=== PATIENT | female | born 1940 | race Caucasian/White ===

== ENCOUNTER 2017-08-19 08:51 | Emergency (ER) | payer MEDICARE, OTHER ==
[~2017-08-19] VITALS: Ht 5367.7 cm; Wt 40.9 kg
[~2017-08-19 08:51] MED LIST: ALBU18HF2 INH; CLOR3.755 PO; ESTR0.5T PO; FURO-150 PO; GUAI200T5 PO; LEVO25TA7 PO; MULT-785 PO; POTA20PA3 PO; PRED20TA PO; RANI300C PO; TIOT4MIS5 INH
[2017-08-19] MEDS ORDERED: dexamethasone sod phosphate 10mg/ml inj IV STA (08:57)
[2017-08-19] MEDS ORDERED: ipratropium/albuterol 3ml nebule NEB ONE (09:00)
[2017-08-19] MEDS ORDERED: LORazepam 2 mg/ml vial IV ONE (09:05)
[2017-08-19 09:20] LABS: ABG HCO3 39.2 mmol/L (22.0-26.0); ABG OXYGEN SATURATION 91.3 % (95-98); ABG PCO2 (T) 68.6 mmHg (32.0-45.0); ABG PH (T) 7.375 (7.350-7.450); ABG PO2 (T) 62.2 mmHg (83-108); ALLEN'S TEST Positive; FCOHb 0.9 % (0.5-1.5); FLOW 2 L/min; FMetHb 0.1 % (0.3-1.12); FO2Hb 90.4 % (94-100); RESPIRATORY RATE (OBSERVED) 26 b/min
[2017-08-19 09:22] LABS: BASOPHILS % (AUTO) 0.2 % (0-1); EOSINOPHILS % (AUTO) 0.2 % (0-6); HEMATOCRIT 42.4 % (35.0-45.0); HEMOGLOBIN 13.7 g/dl (12.0-16.0); LYMPHOCYTES # (AUTO) 0.3 X10'3 (1.1-4.8); LYMPHOCYTES % (AUTO) 1.7 % (21-51); MEAN CORPUSCULAR HEMOGLOBIN 30.9 PG (27.0-31.0); MEAN CORPUSCULAR HGB CONC 32.4 % (33.0-36.5); MEAN CORPUSCULAR VOLUME 95.6 FL (78-98); MEAN PLATELET VOLUME 7.9 FL (7.4-10.4); MONOCYTES # (AUTO) 0.2 X10'3 (0-0.9); MONOCYTES % (AUTO) 0.9 % (2-12); NEUTROPHILS # (AUTO) 18.3 X10'3 (1.8-7.7); PLATELET COUNT 256 X10'3 (140-440); RED BLOOD COUNT 4.44 X10'6 (4.20-5.60); RED CELL DISTRIBUTION WIDTH 13.5 % (11.5-14.5); WHITE BLOOD COUNT 18.9 X10'3 (4.5-11.0)
[2017-08-19 09:43] LABS: ALANINE AMINOTRANSFERASE 26 U/L (12-78); ALBUMIN 3.2 G/DL (3.4-5.0); ALBUMIN/GLOBULIN RATIO 1.1 (1.1-1.5); ALKALINE PHOSPHATASE 64 IU/L (46-116); ASPARTATE AMINO TRANSFERASE 21 U/L (10-37); BILIRUBIN,TOTAL 1.3 MG/DL (0.1-1.0); BLOOD UREA NITROGEN 6 MG/DL (7-18); BUN/CREATININE RATIO 11.1 (6.6-38.0); CHLORIDE 101 MMOL/L (99-107); CHOL/HDL RATIO 1.8 (0.00-4.99); CHOLESTEROL 239 MG/DL (0-200); CREATININE 0.54 MG/DL (0.40-0.90); GLUCOSE 116 MG/DL (70-104); HDL CHOLESTEROL 135 MG/DL (35-60); LDL CHOLESTEROL 105 MG/DL (50-100); POTASSIUM 3.8 MMOL/L (3.5-5.1); TOTAL PROTEIN 6.1 G/DL (6.4-8.2); TRIGLYCERIDES 98 MG/DL (20-135); eGFR > 90 ML/MIN
[2017-08-19 09:55] LABS: ANION GAP 2 (8-16); SODIUM 145 MMOL/L (135-145); TOTAL CARBON DIOXIDE 42.5 MMOL/L (24-32)
[2017-08-19 09:56] LABS: CALCIUM 8.8 MG/DL (8.5-10.1)
[2017-08-19] MEDS ORDERED: ALB0.5UD IH (10:22)
[2017-08-19] MEDS ORDERED: NYSTATIN (10:22)
[2017-08-19 11:08] VITALS: BP 105/68
== END 2017-08-19 12:04 | disposition home or self-care (01) ==
LOC: ER 08:51 → ED HOLD 10:22 → UNDOADMIN 10:22 → ER 12:04 → UNDODISIN 12:32
DX: J44.1 Chronic obstructive pulmonary disease with (acute) exacerbation (principal); E87.4 Mixed disorder of acid-base balance; E03.9 Hypothyroidism, unspecified; E78.00 Pure hypercholesterolemia, unspecified; R91.1 Solitary pulmonary nodule; E78.5 Hyperlipidemia, unspecified; Z90.710 Acquired absence of both cervix and uterus; Z88.1 Allergy status to other antibiotic agents; Z88.8 Allergy status to other drugs, medicaments and biological substances
CPT/HCPCS: 36415; 36600; 71010; 80053; 80061; 82803; 83880; 84439; 84443; 84484; 85018; 85025; 93005; 94640; 94760; 96374; 96375; 99285; J1100; J2060

== ENCOUNTER 2017-08-20 08:44 | Inpatient (IN) | payer MEDICARE, OTHER ==
[~2017-08-20] VITALS: Ht 162.6 cm; Wt 40.9 kg
[~2017-08-20 08:44] MED LIST changes: +ALB0.5UD IH; -FURO-150 PO; +NYSTATIN; -POTA20PA3 PO; -PRED20TA PO; -RANI300C PO
[2017-08-20 09:17] LABS: BASOPHILS % (AUTO) 0.3 % (0-1); EOSINOPHILS # (AUTO) 0.2 X10'3 (0-0.9); EOSINOPHILS % (AUTO) 1.2 % (0-6); HEMATOCRIT 43.6 % (35.0-45.0); LYMPHOCYTES # (AUTO) 0.4 X10'3 (1.1-4.8); LYMPHOCYTES % (AUTO) 2.8 % (21-51); MEAN CORPUSCULAR HEMOGLOBIN 31.2 PG (27.0-31.0); MEAN CORPUSCULAR HGB CONC 32.2 % (33.0-36.5); MEAN PLATELET VOLUME 7.3 FL (7.4-10.4); MONOCYTES # (AUTO) 0.6 X10'3 (0-0.9); MONOCYTES % (AUTO) 3.7 % (2-12); NEUTROPHILS # (AUTO) 14.1 X10'3 (1.8-7.7); PLATELET COUNT 246 X10'3 (140-440); RED BLOOD COUNT 4.49 X10'6 (4.20-5.60); RED CELL DISTRIBUTION WIDTH 14.1 % (11.5-14.5); WHITE BLOOD COUNT 15.4 X10'3 (4.5-11.0)
[2017-08-20 09:39] LABS: ALANINE AMINOTRANSFERASE 31 U/L (12-78); ALBUMIN 3.3 G/DL (3.4-5.0); ALKALINE PHOSPHATASE 70 IU/L (46-116); ANION GAP -2 (8-16); ASPARTATE AMINO TRANSFERASE 22 U/L (10-37); BILIRUBIN,TOTAL 1.2 MG/DL (0.1-1.0); BLOOD UREA NITROGEN 9 MG/DL (7-18); BUN/CREATININE RATIO 13.8 (6.6-38.0); CALCIUM 9.2 MG/DL (8.5-10.1); CHLORIDE 102 MMOL/L (99-107); CREATININE 0.65 MG/DL (0.40-0.90); GLUCOSE 104 MG/DL (70-104); POTASSIUM 4.2 MMOL/L (3.5-5.1); SODIUM 146 MMOL/L (135-145); TOTAL PROTEIN 6.7 G/DL (6.4-8.2); eGFR 89 ML/MIN
[2017-08-20 09:40] LABS: ABG BASE EXCESS 10.2 mmol/L (-2.0-3.0); ABG HCO3 38.7 mmol/L (22.0-26.0); ABG OXYGEN SATURATION 95.2 % (95-98); ABG PCO2 (T) 70.8 mmHg (32.0-45.0); ABG PH (T) 7.356 (7.350-7.450); ABG PO2 (T) 79.2 mmHg (83-108); ALLEN'S TEST Positive; FCOHb 1.1 % (0.5-1.5); FLOW 2 L/min; FMetHb 0.2 % (0.3-1.12); TOTAL HEMOGLOBIN 14.1 G/dl (12.0-16.0)
[2017-08-20 09:45] LABS: PLATELET ESTIMATE NORMAL; STOMATOCYTES 1+
[2017-08-20 09:49] LABS: TOTAL CARBON DIOXIDE 45.7 MMOL/L (24-32)
[2017-08-20] MEDS ORDERED: dexamethasone sod phosphate 10mg/ml inj IV STA (09:59)
[2017-08-20] MEDS ORDERED: ipratropium/albuterol 3ml nebule NEB ONE (10:00)
[2017-08-20] MEDS ORDERED: HYDROcodone/acetaminophen 5mg/325mg tablet PO PRN (10:40)
[2017-08-20] MEDS ORDERED: potassium Cl 20 mEq SR tablet PO PRN ×2 (10:40)
[2017-08-20] MEDS ORDERED: magnesium Cl slow-release 64mg tablet PO PRN (10:40)
[2017-08-20] MEDS ORDERED: potassium Cl 40MEQ/NS 500ml 500 ML IV PRN ×2 (10:40)
[2017-08-20] MEDS ORDERED: bisacodyl 10mg suppository rectal RC PRN (10:40)
[2017-08-20] MEDS ORDERED: ondansetron/PF 4mg/2ml inj IV PRN (10:40)
[2017-08-20] MEDS ORDERED: morphine sulfate 8 MG/ML SYRINGE IV PRN ×2 (10:40)
[2017-08-20] MEDS ORDERED: mag hydrox/Alum hydrox/simeth 30ml oral suspension PO PRN (10:40)
[2017-08-20] MEDS ORDERED: magnesium 4gm in 100ml NS 100 ML IV PRN (10:40)
[2017-08-20] MEDS ORDERED: HYDROcodone/acetaminophen 10/325mg tab PO PRN (10:40)
[2017-08-20] MEDS ORDERED: acetaminophen 325mg tablet PO PRN (10:40)
[2017-08-20] MEDS ORDERED: magnesium 2GM in 50ml NS 50 ML IV PRN (10:40)
[2017-08-20] MEDS ORDERED: GUAIFENESIN PO PRN (10:50)
[2017-08-20] MEDS ORDERED: albuterol 2.5 MG/3 ML nebule NEB PRN (11:25)
[2017-08-20] MEDS ORDERED: CLORAZEPATE DIPOTASSIUM 3.75 MG PO SCH (11:30)
[2017-08-20 11:50] VITALS: BP 132/84
[2017-08-20] MEDS: ipratropium/albuterol 3ml nebule NEB SCH ×4 (12:19→23:23)
[2017-08-20] MEDS: levoFLOXACIN-Levaquin 750MG/D5 150 ML IV SCH (12:30)
[2017-08-20] MEDS: pantoprazole 40 MG vial IV SCH (12:31)
[2017-08-20] MEDS: LORazepam 2 mg/ml vial IV PRN ×2 (12:32→20:18)
[2017-08-20] MEDS: LACTOSE-FREE FOOD 237ML (BOOST) PO SCH ×2 (13:00→18:00)
[2017-08-20] MEDS: methylPREDNISolone sod succ 125mg/2ml vial IV SCH ×2 (14:32→19:21)
[2017-08-20] MEDS: guaiFENesin 200 MG/10 ML oral syrup UD cup PO SCH ×2 (14:33→19:20)
[2017-08-20 15:00] VITALS: BP 95/59
[2017-08-20 18:00] VITALS: BP 112/68
[2017-08-20] MEDS: docusate sod 100mg capsule PO SCH (19:44)
[2017-08-20 22:00] VITALS: BP 97/67
[2017-08-21] MEDS: methylPREDNISolone sod succ 125mg/2ml vial IV SCH ×4 (01:49→19:04)
[2017-08-21] MEDS: guaiFENesin 200 MG/10 ML oral syrup UD cup PO SCH ×4 (01:49→19:05)
[2017-08-21 02:00] VITALS: BP 103/68
[2017-08-21] MEDS: ipratropium/albuterol 3ml nebule NEB SCH ×6 (03:24→23:22)
[2017-08-21 05:36] LABS: BASOPHILS % (AUTO) 0 % (0-1); EOSINOPHILS # (AUTO) 0.1 X10'3 (0-0.9); EOSINOPHILS % (AUTO) 1.2 % (0-6); HEMOGLOBIN 12.1 g/dl (12.0-16.0); LYMPHOCYTES # (AUTO) 0.1 X10'3 (1.1-4.8); LYMPHOCYTES % (AUTO) 1.7 % (21-51); MEAN CORPUSCULAR HEMOGLOBIN 31.2 PG (27.0-31.0); MEAN CORPUSCULAR HGB CONC 32.5 % (33.0-36.5); MEAN PLATELET VOLUME 7.5 FL (7.4-10.4); MONOCYTES # (AUTO) 0.1 X10'3 (0-0.9); MONOCYTES % (AUTO) 1.5 % (2-12); NEUTROPHILS # (AUTO) 5.2 X10'3 (1.8-7.7); NEUTROPHILS % (AUTO) 95.6 % (42-75); PLATELET COUNT 186 X10'3 (140-440); RED BLOOD COUNT 3.86 X10'6 (4.20-5.60); RED CELL DISTRIBUTION WIDTH 13.8 % (11.5-14.5); WHITE BLOOD COUNT 5.5 X10'3 (4.5-11.0)
[2017-08-21 05:55] LABS: ALANINE AMINOTRANSFERASE 21 U/L (12-78); ALBUMIN 2.5 G/DL (3.4-5.0); ALBUMIN/GLOBULIN RATIO 0.9 (1.1-1.5); ALKALINE PHOSPHATASE 52 IU/L (46-116); ANION GAP -1 (8-16); ASPARTATE AMINO TRANSFERASE 21 U/L (10-37); BILIRUBIN,TOTAL 0.7 MG/DL (0.1-1.0); BLOOD UREA NITROGEN 10 MG/DL (7-18); CALCIUM 8.7 MG/DL (8.5-10.1); CHLORIDE 102 MMOL/L (99-107); GLUCOSE 133 MG/DL (70-104); MAGNESIUM 1.9 MG/DL (1.5-2.4); POTASSIUM 4.6 MMOL/L (3.5-5.1); SODIUM 145 MMOL/L (135-145); TOTAL PROTEIN 5.4 G/DL (6.4-8.2); eGFR > 90 ML/MIN
[2017-08-21 06:14] LABS: TOTAL CARBON DIOXIDE 44.3 MMOL/L (24-32)
[2017-08-21 07:00] VITALS: BP 111/71
[2017-08-21] MEDS: multivitamins, therapeutics tablet PO SCH ×2 (08:00→08:33)
[2017-08-21] MEDS: docusate sod 100mg capsule PO SCH ×3 (08:00→19:06)
[2017-08-21] MEDS: LORazepam 2 mg/ml vial IV PRN ×3 (08:20→19:02)
[2017-08-21] MEDS: pantoprazole 40 MG vial IV SCH (08:31)
[2017-08-21] MEDS: levoFLOXACIN-Levaquin 750MG/D5 150 ML IV SCH (08:31)
[2017-08-21] MEDS: enoxaparin 40mg/0.4ml syringe SUBCUT SCH (08:32)
[2017-08-21] MEDS: levoTHYROXINE 25mcg tablet PO SCH (08:33)
[2017-08-21] MEDS: K and/or MAG REPLACEMENT MC SCH (08:47)
[2017-08-21] MEDS: LACTOSE-FREE FOOD 237ML (BOOST) PO SCH ×3 (08:48→18:00)
[2017-08-21 11:00] VITALS: BP 97/69
[2017-08-21 15:00] VITALS: BP 97/61
[2017-08-21] MEDS: lactobacillus rhamnosus 10,000 MMU CELLS/CAPSULE PO SCH (17:39)
[2017-08-21 18:00] VITALS: BP 117/77
[2017-08-21] MEDS: mineral oil/petrolatum, white cream 113gm jar TP SCH (19:50)
[2017-08-21 22:00] VITALS: BP 115/80
[2017-08-22 02:00] VITALS: BP 115/76
[2017-08-22] MEDS: guaiFENesin 200 MG/10 ML oral syrup UD cup PO SCH ×5 (02:00→19:53)
[2017-08-22] MEDS: LORazepam 2 mg/ml vial IV PRN ×3 (02:09→21:52)
[2017-08-22] MEDS: methylPREDNISolone sod succ 125mg/2ml vial IV SCH ×4 (02:09→19:53)
[2017-08-22] MEDS: ipratropium/albuterol 3ml nebule NEB SCH ×6 (03:51→23:08)
[2017-08-22 06:00] VITALS: BP 105/71
[2017-08-22 06:02] LABS: ALANINE AMINOTRANSFERASE 19 U/L (12-78); ALBUMIN 2.5 G/DL (3.4-5.0); ALBUMIN/GLOBULIN RATIO 0.9 (1.1-1.5); ALKALINE PHOSPHATASE 51 IU/L (46-116); ASPARTATE AMINO TRANSFERASE 18 U/L (10-37); BILIRUBIN,TOTAL 0.5 MG/DL (0.1-1.0); BLOOD UREA NITROGEN 14 MG/DL (7-18); BUN/CREATININE RATIO 29.2 (6.6-38.0); CALCIUM 8.9 MG/DL (8.5-10.1); CHLORIDE 101 MMOL/L (99-107); CREATININE 0.48 MG/DL (0.40-0.90); GLUCOSE 136 MG/DL (70-104); POTASSIUM 4.4 MMOL/L (3.5-5.1); SODIUM 142 MMOL/L (135-145); TOTAL PROTEIN 5.4 G/DL (6.4-8.2); eGFR > 90 ML/MIN
[2017-08-22 07:10] LABS: ANION GAP -3 (8-16)
[2017-08-22 07:11] LABS: TOTAL CARBON DIOXIDE 44.4 MMOL/L (24-32)
[2017-08-22] MEDS: docusate sod 100mg capsule PO SCH ×3 (08:00→19:52)
[2017-08-22] MEDS: LACTOSE-FREE FOOD 237ML (BOOST) PO SCH ×3 (08:00→18:34)
[2017-08-22] MEDS: multivitamins, therapeutics tablet PO SCH ×2 (08:00→08:01)
[2017-08-22] MEDS: K and/or MAG REPLACEMENT MC SCH (08:00)
[2017-08-22] MEDS: pantoprazole 40 MG vial IV SCH (08:00)
[2017-08-22] MEDS: levoFLOXACIN-Levaquin 750MG/D5 150 ML IV SCH (08:00)
[2017-08-22] MEDS: enoxaparin 40mg/0.4ml syringe SUBCUT SCH (08:01)
[2017-08-22] MEDS: lactobacillus rhamnosus 10,000 MMU CELLS/CAPSULE PO SCH ×2 (08:01→18:34)
[2017-08-22] MEDS: levoTHYROXINE 25mcg tablet PO SCH (08:01)
[2017-08-22] MEDS: mineral oil/petrolatum, white cream 113gm jar TP SCH ×2 (08:04→21:55)
[2017-08-22 11:00] VITALS: BP 104/71
[2017-08-22 15:00] VITALS: BP 113/74
[2017-08-22 18:00] VITALS: BP 107/70
[2017-08-22 22:00] VITALS: BP 151/90
[2017-08-23] MEDS: methylPREDNISolone sod succ 125mg/2ml vial IV SCH ×2 (01:52→07:55)
[2017-08-23] MEDS: guaiFENesin 200 MG/10 ML oral syrup UD cup PO SCH ×5 (01:52→19:32)
[2017-08-23 02:00] VITALS: BP 133/69
[2017-08-23] MEDS: LORazepam 2 mg/ml vial IV PRN ×2 (02:11→06:00)
[2017-08-23] MEDS: ipratropium/albuterol 3ml nebule NEB SCH ×6 (03:02→23:33)
[2017-08-23 06:00] VITALS: BP 145/89
[2017-08-23 07:22] LABS: ALANINE AMINOTRANSFERASE 24 U/L (12-78); ALBUMIN 2.6 G/DL (3.4-5.0); ALBUMIN/GLOBULIN RATIO 0.8 (1.1-1.5); ALKALINE PHOSPHATASE 54 IU/L (46-116); ASPARTATE AMINO TRANSFERASE 17 U/L (10-37); BILIRUBIN,TOTAL 0.6 MG/DL (0.1-1.0); BLOOD UREA NITROGEN 19 MG/DL (7-18); BUN/CREATININE RATIO 47.5 (6.6-38.0); CALCIUM 8.8 MG/DL (8.5-10.1); CHLORIDE 101 MMOL/L (99-107); GLUCOSE 141 MG/DL (70-104); MAGNESIUM 2.1 MG/DL (1.5-2.4); POTASSIUM 4.7 MMOL/L (3.5-5.1); SODIUM 146 MMOL/L (135-145); TOTAL PROTEIN 5.8 G/DL (6.4-8.2); eGFR > 90 ML/MIN
[2017-08-23] MEDS: lactobacillus rhamnosus 10,000 MMU CELLS/CAPSULE PO SCH ×2 (07:52→09:19)
[2017-08-23] MEDS: pantoprazole 40mg Tablet.DR PO SCH ×2 (07:52→09:19)
[2017-08-23] MEDS: levoTHYROXINE 25mcg tablet PO SCH (07:53)
[2017-08-23] MEDS: enoxaparin 40mg/0.4ml syringe SUBCUT SCH (07:53)
[2017-08-23] MEDS: levoFLOXACIN-Levaquin 750MG/D5 150 ML IV SCH (07:55)
[2017-08-23] MEDS: LACTOSE-FREE FOOD 237ML (BOOST) PO SCH ×3 (08:00→18:00)
[2017-08-23] MEDS: K and/or MAG REPLACEMENT MC SCH (08:00)
[2017-08-23] MEDS: docusate sod 100mg capsule PO SCH ×2 (08:04→09:19)
[2017-08-23] MEDS: multivitamins, therapeutics tablet PO SCH ×2 (08:04→09:18)
[2017-08-23] MEDS: mineral oil/petrolatum, white cream 113gm jar TP SCH ×2 (08:07→19:32)
[2017-08-23] MEDS ORDERED: flumazenil 0.1 mg/ml inj. IV ONE (08:20)
[2017-08-23 08:31] LABS: ANION GAP -1 (8-16)
[2017-08-23 10:10] LABS: ABG BASE EXCESS 19.1 mmol/L (-2.0-3.0); ABG HCO3 50.7 mmol/L (22.0-26.0); ABG OXYGEN SATURATION 97.2 % (95-98); ABG PO2 (T) 98.3 mmHg (83-108); ALLEN'S TEST Positive; FCOHb 0.3 % (0.5-1.5); FLOW 3 L/min; FMetHb 0.3 % (0.3-1.12); FO2Hb 96.6 % (94-100); TOTAL HEMOGLOBIN 13.4 G/dl (12.0-16.0)
[2017-08-23 11:00] VITALS: BP 138/90
[2017-08-23 13:36] LABS: ABG BASE EXCESS 21.5 mmol/L (-2.0-3.0); ABG HCO3 51.3 mmol/L (22.0-26.0); ABG OXYGEN SATURATION 92.1 % (95-98); ABG PCO2 (T) 83.7 mmHg (32.0-45.0); ABG PH (T) 7.405 (7.350-7.450); ABG PO2 (T) 60.5 mmHg (83-108); ALLEN'S TEST Positive; FCOHb 0.5 % (0.5-1.5); FMetHb 0.1 % (0.3-1.12); FO2Hb 91.5 % (94-100); MINUTE VOLUME 11 L/min; TOTAL HEMOGLOBIN 13.7 G/dl (12.0-16.0)
[2017-08-23 15:00] VITALS: BP 121/87
[2017-08-23 18:00] VITALS: BP 131/95
[2017-08-23] MEDS: methylPREDNISolone sod succ/PF 40mg inj. IV SCH (19:32)
[2017-08-23 22:00] VITALS: BP 128/91
[2017-08-24 02:00] VITALS: BP 128/96
[2017-08-24] MEDS: guaiFENesin 200 MG/10 ML oral syrup UD cup PO SCH ×4 (02:00→20:01)
[2017-08-24] MEDS: ipratropium/albuterol 3ml nebule NEB SCH ×6 (03:33→22:50)
[2017-08-24 06:07] LABS: BASOPHILS % (AUTO) 0 % (0-1); EOSINOPHILS % (AUTO) 0 % (0-6); HEMATOCRIT 40.5 % (35.0-45.0); HEMOGLOBIN 13.1 g/dl (12.0-16.0); LYMPHOCYTES # (AUTO) 0.2 X10'3 (1.1-4.8); LYMPHOCYTES % (AUTO) 1.5 % (21-51); MEAN CORPUSCULAR HEMOGLOBIN 31.2 PG (27.0-31.0); MEAN CORPUSCULAR HGB CONC 32.3 % (33.0-36.5); MEAN CORPUSCULAR VOLUME 96.5 FL (78-98); MEAN PLATELET VOLUME 8.1 FL (7.4-10.4); MONOCYTES # (AUTO) 0.4 X10'3 (0-0.9); NEUTROPHILS # (AUTO) 11.8 X10'3 (1.8-7.7); NEUTROPHILS % (AUTO) 95.5 % (42-75); PLATELET COUNT 148 X10'3 (140-440); RED CELL DISTRIBUTION WIDTH 13.7 % (11.5-14.5); WHITE BLOOD COUNT 12.4 X10'3 (4.5-11.0)
[2017-08-24 06:34] LABS: ALANINE AMINOTRANSFERASE 23 U/L (12-78); ALBUMIN 2.5 G/DL (3.4-5.0); ALBUMIN/GLOBULIN RATIO 0.8 (1.1-1.5); ALKALINE PHOSPHATASE 55 IU/L (46-116); ASPARTATE AMINO TRANSFERASE 20 U/L (10-37); BILIRUBIN,TOTAL 0.9 MG/DL (0.1-1.0); BLOOD UREA NITROGEN 20 MG/DL (7-18); BUN/CREATININE RATIO 42.6 (6.6-38.0); CALCIUM 8.6 MG/DL (8.5-10.1); CHLORIDE 100 MMOL/L (99-107); CREATININE 0.47 MG/DL (0.40-0.90); GLUCOSE 89 MG/DL (70-104); MAGNESIUM 2.1 MG/DL (1.5-2.4); SODIUM 145 MMOL/L (135-145); TOTAL PROTEIN 5.6 G/DL (6.4-8.2); eGFR > 90 ML/MIN
[2017-08-24 06:46] LABS: ANION GAP -2 (8-16)
[2017-08-24 07:00] VITALS: BP 121/94
[2017-08-24 07:14] LABS: TOTAL CARBON DIOXIDE 46.9 MMOL/L (24-32)
[2017-08-24] MEDS: lactobacillus rhamnosus 10,000 MMU CELLS/CAPSULE PO SCH ×2 (07:30→07:48)
[2017-08-24] MEDS: methylPREDNISolone sod succ/PF 40mg inj. IV SCH ×2 (07:47→20:01)
[2017-08-24] MEDS: pantoprazole 40mg Tablet.DR PO SCH (07:48)
[2017-08-24] MEDS: levoTHYROXINE 25mcg tablet PO SCH (07:48)
[2017-08-24] MEDS: enoxaparin 40mg/0.4ml syringe SUBCUT SCH (07:48)
[2017-08-24] MEDS: docusate sod 100mg capsule PO SCH ×2 (08:00→20:00)
[2017-08-24] MEDS: K and/or MAG REPLACEMENT MC SCH (08:00)
[2017-08-24] MEDS: LACTOSE-FREE FOOD 237ML (BOOST) PO SCH ×3 (08:00→20:01)
[2017-08-24 08:16] LABS: ABG BASE EXCESS 17.9 mmol/L (-2.0-3.0); ABG HCO3 47.4 mmol/L (22.0-26.0); ABG OXYGEN SATURATION 96.1 % (95-98); ABG PCO2 (T) 80.5 mmHg (32.0-45.0); ABG PH (T) 7.388 (7.350-7.450); ABG PO2 (T) 82.2 mmHg (83-108); ALLEN'S TEST Positive; FCOHb 0.7 % (0.5-1.5); FLOW 3 L/min; FMetHb 0.2 % (0.3-1.12); FO2Hb 95.2 % (94-100); RESPIRATORY RATE (OBSERVED) 20 b/min; TOTAL HEMOGLOBIN 14.2 G/dl (12.0-16.0)
[2017-08-24] MEDS: mineral oil/petrolatum, white cream 113gm jar TP SCH ×2 (08:26→20:01)
[2017-08-24 11:00] VITALS: BP 130/95
[2017-08-24] MEDS: levoFLOXACIN 750MG TABLET PO SCH (11:32)
[2017-08-24 15:00] VITALS: BP 124/88
[2017-08-24 18:00] VITALS: BP 111/72
[2017-08-24 22:00] VITALS: BP 124/73
[2017-08-25 02:00] VITALS: BP 119/87
[2017-08-25] MEDS: guaiFENesin 200 MG/10 ML oral syrup UD cup PO SCH ×4 (02:00→19:50)
[2017-08-25] MEDS: ipratropium/albuterol 3ml nebule NEB SCH ×6 (03:52→23:37)
[2017-08-25 06:00] VITALS: BP 138/99
[2017-08-25 06:05] LABS: BASOPHILS % (AUTO) 0 % (0-1); EOSINOPHILS # (AUTO) 0.1 X10'3 (0-0.9); EOSINOPHILS % (AUTO) 1.2 % (0-6); HEMATOCRIT 40.5 % (35.0-45.0); HEMOGLOBIN 13.1 g/dl (12.0-16.0); LYMPHOCYTES # (AUTO) 0.2 X10'3 (1.1-4.8); MEAN CORPUSCULAR HEMOGLOBIN 31.2 PG (27.0-31.0); MEAN CORPUSCULAR HGB CONC 32.3 % (33.0-36.5); MEAN CORPUSCULAR VOLUME 96.5 FL (78-98); MEAN PLATELET VOLUME 8.5 FL (7.4-10.4); MONOCYTES # (AUTO) 0.2 X10'3 (0-0.9); MONOCYTES % (AUTO) 2.3 % (2-12); NEUTROPHILS # (AUTO) 7.9 X10'3 (1.8-7.7); NEUTROPHILS % (AUTO) 94.5 % (42-75); PLATELET COUNT 130 X10'3 (140-440); RED CELL DISTRIBUTION WIDTH 13.8 % (11.5-14.5); WHITE BLOOD COUNT 8.4 X10'3 (4.5-11.0)
[2017-08-25 06:41] LABS: ALANINE AMINOTRANSFERASE 21 U/L (12-78); ALBUMIN 2.5 G/DL (3.4-5.0); ALBUMIN/GLOBULIN RATIO 0.8 (1.1-1.5); ALKALINE PHOSPHATASE 50 IU/L (46-116); ANION GAP -3 (8-16); ASPARTATE AMINO TRANSFERASE 18 U/L (10-37); BLOOD UREA NITROGEN 20 MG/DL (7-18); BUN/CREATININE RATIO 35.1 (6.6-38.0); CALCIUM 9.3 MG/DL (8.5-10.1); CHLORIDE 103 MMOL/L (99-107); CREATININE 0.57 MG/DL (0.40-0.90); GLUCOSE 133 MG/DL (70-104); MAGNESIUM 2.3 MG/DL (1.5-2.4); POTASSIUM 4.9 MMOL/L (3.5-5.1); SODIUM 147 MMOL/L (135-145); TOTAL PROTEIN 5.5 G/DL (6.4-8.2); eGFR > 90 ML/MIN
[2017-08-25 06:44] LABS: TOTAL CARBON DIOXIDE 46.8 MMOL/L (24-32)
[2017-08-25] MEDS: docusate sod 100mg capsule PO SCH ×2 (08:00→19:50)
[2017-08-25] MEDS: multivitamins, therapeutics tablet PO SCH (08:00)
[2017-08-25] MEDS: K and/or MAG REPLACEMENT MC SCH (08:00)
[2017-08-25] MEDS: LACTOSE-FREE FOOD 237ML (BOOST) PO SCH ×3 (08:20→18:24)
[2017-08-25] MEDS: methylPREDNISolone sod succ/PF 40mg inj. IV SCH ×2 (08:28→19:50)
[2017-08-25] MEDS: levoTHYROXINE 25mcg tablet PO SCH ×2 (08:33→09:40)
[2017-08-25] MEDS: mineral oil/petrolatum, white cream 113gm jar TP SCH ×2 (08:35→19:50)
[2017-08-25] MEDS: enoxaparin 40mg/0.4ml syringe SUBCUT SCH (08:35)
[2017-08-25 11:00] VITALS: BP 131/87
[2017-08-25] MEDS: levoFLOXACIN 750MG TABLET PO SCH (11:22)
[2017-08-25 15:00] VITALS: BP 112/81
[2017-08-25] MEDS: lactobacillus rhamnosus 10,000 MMU CELLS/CAPSULE PO SCH (17:15)
[2017-08-25 19:00] VITALS: BP 116/80
[2017-08-25 23:00] VITALS: BP 122/86
[2017-08-26] MEDS: magnesium hydroxide 30ml (MOM) UD suspension PO PRN ×2 (00:11→21:35)
[2017-08-26] MEDS: guaiFENesin 200 MG/10 ML oral syrup UD cup PO SCH ×4 (02:00→21:35)
[2017-08-26 03:00] VITALS: BP 159/105
[2017-08-26] MEDS: ipratropium/albuterol 3ml nebule NEB SCH ×6 (03:36→23:17)
[2017-08-26 06:00] VITALS: BP 142/87
[2017-08-26] MEDS: lactobacillus rhamnosus 10,000 MMU CELLS/CAPSULE PO SCH ×2 (07:30→17:19)
[2017-08-26] MEDS: LACTOSE-FREE FOOD 237ML (BOOST) PO SCH ×3 (08:00→18:00)
[2017-08-26] MEDS: multivitamins, therapeutics tablet PO SCH (08:00)
[2017-08-26] MEDS: K and/or MAG REPLACEMENT MC SCH (08:00)
[2017-08-26] MEDS: docusate sod 100mg capsule PO SCH ×2 (08:00→20:00)
[2017-08-26] MEDS: pantoprazole 40mg Tablet.DR PO SCH (08:49)
[2017-08-26] MEDS: methylPREDNISolone sod succ/PF 40mg inj. IV SCH ×2 (08:54→21:35)
[2017-08-26] MEDS: enoxaparin 40mg/0.4ml syringe SUBCUT SCH (08:57)
[2017-08-26] MEDS: mineral oil/petrolatum, white cream 113gm jar TP SCH ×2 (08:57→21:36)
[2017-08-26 11:00] VITALS: BP 113/79
[2017-08-26] MEDS: levoFLOXACIN 750MG TABLET PO SCH (11:26)
[2017-08-26 12:25] LABS: BASOPHILS % (AUTO) 0.2 % (0-1); EOSINOPHILS # (AUTO) 0.1 X10'3 (0-0.9); HEMATOCRIT 43.1 % (35.0-45.0); HEMOGLOBIN 14.1 g/dl (12.0-16.0); LYMPHOCYTES # (AUTO) 0.1 X10'3 (1.1-4.8); LYMPHOCYTES % (AUTO) 0.8 % (21-51); MEAN CORPUSCULAR HEMOGLOBIN 31.3 PG (27.0-31.0); MEAN CORPUSCULAR HGB CONC 32.6 % (33.0-36.5); MEAN CORPUSCULAR VOLUME 95.9 FL (78-98); MEAN PLATELET VOLUME 8.4 FL (7.4-10.4); MONOCYTES # (AUTO) 0.2 X10'3 (0-0.9); MONOCYTES % (AUTO) 1.7 % (2-12); NEUTROPHILS # (AUTO) 13.4 X10'3 (1.8-7.7); NEUTROPHILS % (AUTO) 96.3 % (42-75); PLATELET COUNT 166 X10'3 (140-440); RED CELL DISTRIBUTION WIDTH 13.8 % (11.5-14.5); WHITE BLOOD COUNT 13.9 X10'3 (4.5-11.0)
[2017-08-26 12:43] LABS: ALANINE AMINOTRANSFERASE 22 U/L (12-78); ALBUMIN 2.8 G/DL (3.4-5.0); ALBUMIN/GLOBULIN RATIO 0.8 (1.1-1.5); ALKALINE PHOSPHATASE 56 IU/L (46-116); ASPARTATE AMINO TRANSFERASE 18 U/L (10-37); BILIRUBIN,TOTAL 1.1 MG/DL (0.1-1.0); BLOOD UREA NITROGEN 20 MG/DL (7-18); CALCIUM 9.1 MG/DL (8.5-10.1); CHLORIDE 103 MMOL/L (99-107); CREATININE 0.54 MG/DL (0.40-0.90); GLUCOSE 120 MG/DL (70-104); POTASSIUM 4.5 MMOL/L (3.5-5.1); SODIUM 149 MMOL/L (135-145); TOTAL PROTEIN 6.1 G/DL (6.4-8.2); eGFR > 90 ML/MIN
[2017-08-26 12:53] LABS: ANION GAP -4 (8-16)
[2017-08-26 12:55] LABS: TOTAL CARBON DIOXIDE > 50 MMOL/L (24-32)
[2017-08-26 15:00] VITALS: BP 110/66
[2017-08-26 19:00] VITALS: BP 103/69
[2017-08-26 23:00] VITALS: BP 126/84
[2017-08-27] MEDS: guaiFENesin 200 MG/10 ML oral syrup UD cup PO SCH ×4 (02:00→20:00)
[2017-08-27 03:00] VITALS: BP 103/66
[2017-08-27] MEDS: ipratropium/albuterol 3ml nebule NEB SCH ×6 (03:04→22:46)
[2017-08-27 05:04] LABS: BASOPHILS % (AUTO) 0 % (0-1); EOSINOPHILS # (AUTO) 0.1 X10'3 (0-0.9); EOSINOPHILS % (AUTO) 0.9 % (0-6); HEMATOCRIT 38.5 % (35.0-45.0); HEMOGLOBIN 12.3 g/dl (12.0-16.0); LYMPHOCYTES # (AUTO) 0.1 X10'3 (1.1-4.8); LYMPHOCYTES % (AUTO) 1.5 % (21-51); MEAN CORPUSCULAR HEMOGLOBIN 30.8 PG (27.0-31.0); MEAN CORPUSCULAR VOLUME 96.2 FL (78-98); MEAN PLATELET VOLUME 8.2 FL (7.4-10.4); MONOCYTES # (AUTO) 0.1 X10'3 (0-0.9); MONOCYTES % (AUTO) 1.4 % (2-12); NEUTROPHILS # (AUTO) 7.7 X10'3 (1.8-7.7); NEUTROPHILS % (AUTO) 96.2 % (42-75); PLATELET COUNT 156 X10'3 (140-440); RED CELL DISTRIBUTION WIDTH 13.4 % (11.5-14.5)
[2017-08-27 05:26] LABS: ALANINE AMINOTRANSFERASE 21 U/L (12-78); ALBUMIN 2.4 G/DL (3.4-5.0); ALBUMIN/GLOBULIN RATIO 0.8 (1.1-1.5); ALKALINE PHOSPHATASE 48 IU/L (46-116); ANION GAP 1 (8-16); ASPARTATE AMINO TRANSFERASE 16 U/L (10-37); BILIRUBIN,TOTAL 0.8 MG/DL (0.1-1.0); BLOOD UREA NITROGEN 21 MG/DL (7-18); BUN/CREATININE RATIO 42.9 (6.6-38.0); CALCIUM 9.1 MG/DL (8.5-10.1); CHLORIDE 102 MMOL/L (99-107); CREATININE 0.49 MG/DL (0.40-0.90); GLUCOSE 156 MG/DL (70-104); MAGNESIUM 2.5 MG/DL (1.5-2.4); POTASSIUM 4.8 MMOL/L (3.5-5.1); SODIUM 149 MMOL/L (135-145); TOTAL PROTEIN 5.3 G/DL (6.4-8.2); eGFR > 90 ML/MIN
[2017-08-27 05:50] LABS: TOTAL CARBON DIOXIDE 46.5 MMOL/L (24-32)
[2017-08-27 06:00] VITALS: BP 101/66
[2017-08-27] MEDS: levoTHYROXINE 25mcg tablet PO SCH (08:00)
[2017-08-27] MEDS: LACTOSE-FREE FOOD 237ML (BOOST) PO SCH ×3 (08:00→18:00)
[2017-08-27] MEDS: docusate sod 100mg capsule PO SCH ×2 (08:00→20:40)
[2017-08-27] MEDS: K and/or MAG REPLACEMENT MC SCH (08:00)
[2017-08-27] MEDS: lactobacillus rhamnosus 10,000 MMU CELLS/CAPSULE PO SCH ×2 (08:54→17:30)
[2017-08-27] MEDS: pantoprazole 40mg Tablet.DR PO SCH (08:55)
[2017-08-27] MEDS: methylPREDNISolone sod succ/PF 40mg inj. IV SCH ×2 (08:55→20:40)
[2017-08-27] MEDS: multivitamins, therapeutics tablet PO SCH (08:58)
[2017-08-27] MEDS: enoxaparin 40mg/0.4ml syringe SUBCUT SCH (08:59)
[2017-08-27] MEDS: mineral oil/petrolatum, white cream 113gm jar TP SCH ×2 (08:59→20:41)
[2017-08-27 11:00] VITALS: BP 114/81
[2017-08-27] MEDS: levoFLOXACIN 750MG TABLET PO SCH (11:19)
[2017-08-27 15:00] VITALS: BP 123/84
[2017-08-27 19:00] VITALS: BP 118/74
[2017-08-27 23:00] VITALS: BP 121/87
[2017-08-28] MEDS: guaiFENesin 200 MG/10 ML oral syrup UD cup PO SCH ×4 (02:00→19:37)
[2017-08-28 03:00] VITALS: BP 118/74
[2017-08-28] MEDS: ipratropium/albuterol 3ml nebule NEB SCH ×5 (03:37→19:18)
[2017-08-28 05:43] LABS: BASOPHILS % (AUTO) 0 % (0-1); EOSINOPHILS # (AUTO) 0.1 X10'3 (0-0.9); HEMATOCRIT 36.7 % (35.0-45.0); HEMOGLOBIN 11.9 g/dl (12.0-16.0); LYMPHOCYTES # (AUTO) 0.2 X10'3 (1.1-4.8); LYMPHOCYTES % (AUTO) 2.4 % (21-51); MEAN CORPUSCULAR HEMOGLOBIN 30.9 PG (27.0-31.0); MEAN CORPUSCULAR HGB CONC 32.5 % (33.0-36.5); MEAN CORPUSCULAR VOLUME 95.3 FL (78-98); MEAN PLATELET VOLUME 8.1 FL (7.4-10.4); MONOCYTES # (AUTO) 0.3 X10'3 (0-0.9); MONOCYTES % (AUTO) 3.8 % (2-12); NEUTROPHILS # (AUTO) 6.5 X10'3 (1.8-7.7); NEUTROPHILS % (AUTO) 92.8 % (42-75); PLATELET COUNT 155 X10'3 (140-440); RED BLOOD COUNT 3.85 X10'6 (4.20-5.60); RED CELL DISTRIBUTION WIDTH 13.5 % (11.5-14.5)
[2017-08-28 06:00] VITALS: BP 114/78
[2017-08-28 06:28] LABS: ALANINE AMINOTRANSFERASE 21 U/L (12-78); ALBUMIN 2.4 G/DL (3.4-5.0); ALBUMIN/GLOBULIN RATIO 0.8 (1.1-1.5); ALKALINE PHOSPHATASE 46 IU/L (46-116); ANION GAP 1 (8-16); ASPARTATE AMINO TRANSFERASE 15 U/L (10-37); BILIRUBIN,TOTAL 0.7 MG/DL (0.1-1.0); BLOOD UREA NITROGEN 21 MG/DL (7-18); BUN/CREATININE RATIO 41.2 (6.6-38.0); CHLORIDE 103 MMOL/L (99-107); CREATININE 0.51 MG/DL (0.40-0.90); GLUCOSE 132 MG/DL (70-104); POTASSIUM 4.5 MMOL/L (3.5-5.1); SODIUM 148 MMOL/L (135-145); TOTAL PROTEIN 5.3 G/DL (6.4-8.2); eGFR > 90 ML/MIN
[2017-08-28 07:27] LABS: TOTAL CARBON DIOXIDE 43.6 MMOL/L (24-32)
[2017-08-28] MEDS: lactobacillus rhamnosus 10,000 MMU CELLS/CAPSULE PO SCH ×2 (07:30→17:11)
[2017-08-28] MEDS: pantoprazole 40mg Tablet.DR PO SCH (07:30)
[2017-08-28] MEDS: multivitamins, therapeutics tablet PO SCH (08:00)
[2017-08-28] MEDS: LACTOSE-FREE FOOD 237ML (BOOST) PO SCH ×3 (08:00→18:00)
[2017-08-28] MEDS: K and/or MAG REPLACEMENT MC SCH (08:00)
[2017-08-28] MEDS: levoTHYROXINE 25mcg tablet PO SCH (08:28)
[2017-08-28] MEDS: magnesium hydroxide 30ml (MOM) UD suspension PO PRN (08:30)
[2017-08-28] MEDS: docusate sodium 100mg/10ml UD cup PO SCH ×2 (08:30→19:37)
[2017-08-28] MEDS: methylPREDNISolone sod succ/PF 40mg inj. IV SCH ×2 (08:31→19:36)
[2017-08-28] MEDS: mineral oil/petrolatum, white cream 113gm jar TP SCH ×2 (08:32→19:38)
[2017-08-28] MEDS: enoxaparin 40mg/0.4ml syringe SUBCUT SCH (08:32)
[2017-08-28 11:00] VITALS: BP 122/85
[2017-08-28] MEDS: levoFLOXACIN 750MG TABLET PO SCH (11:38)
[2017-08-28 15:00] VITALS: BP 116/84
[2017-08-28 19:00] VITALS: BP 117/83
[2017-08-28 23:00] VITALS: BP 129/85
[2017-08-29] MEDS: ipratropium/albuterol 3ml nebule NEB SCH ×7 (00:06→23:19)
[2017-08-29] MEDS: guaiFENesin 200 MG/10 ML oral syrup UD cup PO SCH ×4 (01:41→19:15)
[2017-08-29 03:00] VITALS: BP 112/76
[2017-08-29 05:30] VITALS: BP 118/85
[2017-08-29 06:13] LABS: BASOPHILS % (AUTO) 0 % (0-1); EOSINOPHILS # (AUTO) 0.1 X10'3 (0-0.9); EOSINOPHILS % (AUTO) 1.3 % (0-6); HEMATOCRIT 38.6 % (35.0-45.0); HEMOGLOBIN 12.5 g/dl (12.0-16.0); LYMPHOCYTES # (AUTO) 0.2 X10'3 (1.1-4.8); LYMPHOCYTES % (AUTO) 2.7 % (21-51); MEAN CORPUSCULAR HEMOGLOBIN 31.2 PG (27.0-31.0); MEAN CORPUSCULAR HGB CONC 32.4 % (33.0-36.5); MEAN CORPUSCULAR VOLUME 96.4 FL (78-98); MEAN PLATELET VOLUME 8.3 FL (7.4-10.4); MONOCYTES # (AUTO) 0.4 X10'3 (0-0.9); MONOCYTES % (AUTO) 4.3 % (2-12); NEUTROPHILS # (AUTO) 7.7 X10'3 (1.8-7.7); NEUTROPHILS % (AUTO) 91.7 % (42-75); PLATELET COUNT 183 X10'3 (140-440); RED BLOOD COUNT 4.01 X10'6 (4.20-5.60); RED CELL DISTRIBUTION WIDTH 13.6 % (11.5-14.5); WHITE BLOOD COUNT 8.4 X10'3 (4.5-11.0)
[2017-08-29 06:33] LABS: ALANINE AMINOTRANSFERASE 22 U/L (12-78); ALBUMIN 2.5 G/DL (3.4-5.0); ALBUMIN/GLOBULIN RATIO 0.9 (1.1-1.5); ALKALINE PHOSPHATASE 51 IU/L (46-116); ANION GAP 0 (8-16); ASPARTATE AMINO TRANSFERASE 14 U/L (10-37); BILIRUBIN,TOTAL 0.9 MG/DL (0.1-1.0); BLOOD UREA NITROGEN 19 MG/DL (7-18); BUN/CREATININE RATIO 44.2 (6.6-38.0); CALCIUM 9.1 MG/DL (8.5-10.1); CHLORIDE 104 MMOL/L (99-107); CREATININE 0.43 MG/DL (0.40-0.90); GLUCOSE 115 MG/DL (70-104); POTASSIUM 4.4 MMOL/L (3.5-5.1); SODIUM 147 MMOL/L (135-145); TOTAL PROTEIN 5.4 G/DL (6.4-8.2); eGFR > 90 ML/MIN
[2017-08-29 07:05] LABS: TOTAL CARBON DIOXIDE 42.8 MMOL/L (24-32)
[2017-08-29] MEDS: K and/or MAG REPLACEMENT MC SCH (08:00)
[2017-08-29] MEDS: multivitamins, therapeutics tablet PO SCH (08:00)
[2017-08-29] MEDS: docusate sodium 100mg/10ml UD cup PO SCH ×2 (08:00→19:15)
[2017-08-29] MEDS: pantoprazole 40mg Tablet.DR PO SCH (08:19)
[2017-08-29] MEDS: lactobacillus rhamnosus 10,000 MMU CELLS/CAPSULE PO SCH ×2 (08:19→17:54)
[2017-08-29] MEDS: LACTOSE-FREE FOOD 237ML (BOOST) PO SCH ×3 (08:20→18:00)
[2017-08-29] MEDS: methylPREDNISolone sod succ/PF 40mg inj. IV SCH ×2 (08:20→20:02)
[2017-08-29] MEDS: levoTHYROXINE 25mcg tablet PO SCH (08:21)
[2017-08-29] MEDS: enoxaparin 40mg/0.4ml syringe SUBCUT SCH (08:22)
[2017-08-29] MEDS: mineral oil/petrolatum, white cream 113gm jar TP SCH ×2 (08:22→19:16)
[2017-08-29 11:00] VITALS: BP 133/89
[2017-08-29] MEDS: levoFLOXACIN 750MG TABLET PO SCH (12:07)
[2017-08-29] MEDS: LORazepam 2 mg/ml vial IV PRN (14:25)
[2017-08-29 15:00] VITALS: BP 110/81
[2017-08-29] MEDS: nystatin 500,000 unit/5ML UD oral suspension PO SCH ×2 (15:07→20:09)
[2017-08-29] MEDS ORDERED: dronabinol 2.5mg capsule PO STA (17:22)
[2017-08-29] MEDS: dronabinol 2.5mg capsule PO SCH (17:30)
[2017-08-29 19:00] VITALS: BP 103/74
[2017-08-29 23:00] VITALS: BP 106/72
[2017-08-30] MEDS: guaiFENesin 200 MG/10 ML oral syrup UD cup PO SCH ×4 (00:53→20:00)
[2017-08-30] MEDS: ipratropium/albuterol 3ml nebule NEB SCH ×6 (02:52→22:58)
[2017-08-30 03:00] VITALS: BP 117/81
[2017-08-30 05:30] VITALS: BP 112/72
[2017-08-30 06:06] LABS: BASOPHILS % (AUTO) 0 % (0-1); EOSINOPHILS # (AUTO) 0.2 X10'3 (0-0.9); EOSINOPHILS % (AUTO) 1.5 % (0-6); HEMATOCRIT 40.6 % (35.0-45.0); HEMOGLOBIN 13.3 g/dl (12.0-16.0); LYMPHOCYTES # (AUTO) 0.3 X10'3 (1.1-4.8); LYMPHOCYTES % (AUTO) 2.6 % (21-51); MEAN CORPUSCULAR HEMOGLOBIN 31.3 PG (27.0-31.0); MEAN CORPUSCULAR HGB CONC 32.6 % (33.0-36.5); MEAN CORPUSCULAR VOLUME 95.9 FL (78-98); MEAN PLATELET VOLUME 8.2 FL (7.4-10.4); MONOCYTES # (AUTO) 0.4 X10'3 (0-0.9); MONOCYTES % (AUTO) 2.9 % (2-12); NEUTROPHILS # (AUTO) 11.6 X10'3 (1.8-7.7); PLATELET COUNT 240 X10'3 (140-440); RED BLOOD COUNT 4.24 X10'6 (4.20-5.60); RED CELL DISTRIBUTION WIDTH 13.5 % (11.5-14.5); WHITE BLOOD COUNT 12.5 X10'3 (4.5-11.0)
[2017-08-30 06:46] LABS: ALANINE AMINOTRANSFERASE 23 U/L (12-78); ALBUMIN 2.7 G/DL (3.4-5.0); ALBUMIN/GLOBULIN RATIO 0.9 (1.1-1.5); ALKALINE PHOSPHATASE 55 IU/L (46-116); ANION GAP 1 (8-16); ASPARTATE AMINO TRANSFERASE 18 U/L (10-37); BILIRUBIN,TOTAL 0.9 MG/DL (0.1-1.0); BLOOD UREA NITROGEN 18 MG/DL (7-18); BUN/CREATININE RATIO 27.3 (6.6-38.0); CHLORIDE 101 MMOL/L (99-107); CREATININE 0.66 MG/DL (0.40-0.90); GLUCOSE 110 MG/DL (70-104); POTASSIUM 4.8 MMOL/L (3.5-5.1); SODIUM 142 MMOL/L (135-145); TOTAL CARBON DIOXIDE 39.7 MMOL/L (24-32); TOTAL PROTEIN 5.8 G/DL (6.4-8.2); eGFR 87 ML/MIN
[2017-08-30] MEDS: lactobacillus rhamnosus 10,000 MMU CELLS/CAPSULE PO SCH ×2 (07:30→17:22)
[2017-08-30] MEDS: dronabinol 2.5mg capsule PO SCH ×3 (07:30→17:30)
[2017-08-30] MEDS: multivitamins, therapeutics tablet PO SCH (08:00)
[2017-08-30] MEDS: K and/or MAG REPLACEMENT MC SCH (08:00)
[2017-08-30] MEDS: LACTOSE-FREE FOOD 237ML (BOOST) PO SCH ×3 (08:00→18:00)
[2017-08-30] MEDS: docusate sodium 100mg/10ml UD cup PO SCH ×2 (08:00→20:00)
[2017-08-30] MEDS: nystatin 500,000 unit/5ML UD oral suspension PO SCH ×3 (08:46→20:31)
[2017-08-30] MEDS: enoxaparin 40mg/0.4ml syringe SUBCUT SCH (08:47)
[2017-08-30] MEDS: levoTHYROXINE 25mcg tablet PO SCH (08:48)
[2017-08-30] MEDS: pantoprazole 40mg Tablet.DR PO SCH (08:50)
[2017-08-30] MEDS: methylPREDNISolone sod succ/PF 40mg inj. IV SCH ×2 (08:50→20:31)
[2017-08-30] MEDS: mineral oil/petrolatum, white cream 113gm jar TP SCH ×2 (09:04→20:38)
[2017-08-30 11:00] VITALS: BP 116/79
[2017-08-30] MEDS: levoFLOXACIN 750MG TABLET PO SCH (11:13)
[2017-08-30 15:00] VITALS: BP 120/81
[2017-08-30] MEDS ORDERED: GABA-532 PO (17:29)
[2017-08-30 19:00] VITALS: BP 128/85
[2017-08-30] MEDS: LORazepam 2 mg/ml vial IV PRN (20:31)
[2017-08-30 23:00] VITALS: BP 109/73
[2017-08-31] MEDS: guaiFENesin 200 MG/10 ML oral syrup UD cup PO SCH ×4 (02:00→20:00)
[2017-08-31 03:00] VITALS: BP 100/67
[2017-08-31] MEDS: ipratropium/albuterol 3ml nebule NEB SCH ×6 (03:45→23:07)
[2017-08-31 05:46] LABS: BASOPHILS % (AUTO) 0 % (0-1); EOSINOPHILS # (AUTO) 0.1 X10'3 (0-0.9); EOSINOPHILS % (AUTO) 1.1 % (0-6); HEMATOCRIT 37.8 % (35.0-45.0); HEMOGLOBIN 12.1 g/dl (12.0-16.0); LYMPHOCYTES # (AUTO) 0.2 X10'3 (1.1-4.8); LYMPHOCYTES % (AUTO) 2.1 % (21-51); MEAN CORPUSCULAR HEMOGLOBIN 30.7 PG (27.0-31.0); MEAN CORPUSCULAR HGB CONC 32.1 % (33.0-36.5); MEAN CORPUSCULAR VOLUME 95.6 FL (78-98); MONOCYTES # (AUTO) 0.3 X10'3 (0-0.9); MONOCYTES % (AUTO) 2.7 % (2-12); NEUTROPHILS # (AUTO) 10.1 X10'3 (1.8-7.7); NEUTROPHILS % (AUTO) 94.1 % (42-75); PLATELET COUNT 232 X10'3 (140-440); RED BLOOD COUNT 3.95 X10'6 (4.20-5.60); RED CELL DISTRIBUTION WIDTH 13.8 % (11.5-14.5); WHITE BLOOD COUNT 10.8 X10'3 (4.5-11.0)
[2017-08-31 06:00] VITALS: BP 131/91
[2017-08-31 06:33] LABS: ALBUMIN 2.4 G/DL (3.4-5.0); CHLORIDE 101 MMOL/L (99-107); GLUCOSE 109 MG/DL (70-104)
[2017-08-31 07:12] LABS: ALANINE AMINOTRANSFERASE 22 U/L (12-78); ALBUMIN/GLOBULIN RATIO 0.8 (1.1-1.5); ALKALINE PHOSPHATASE 49 IU/L (46-116); ANION GAP 6 (8-16); ASPARTATE AMINO TRANSFERASE 13 U/L (10-37); BILIRUBIN,TOTAL 0.8 MG/DL (0.1-1.0); BLOOD UREA NITROGEN 16 MG/DL (7-18); BUN/CREATININE RATIO 29.6 (6.6-38.0); CALCIUM 8.3 MG/DL (8.5-10.1); CREATININE 0.54 MG/DL (0.40-0.90); POTASSIUM 4.7 MMOL/L (3.5-5.1); SODIUM 143 MMOL/L (135-145); TOTAL CARBON DIOXIDE 36.4 MMOL/L (24-32); TOTAL PROTEIN 5.3 G/DL (6.4-8.2); eGFR > 90 ML/MIN
[2017-08-31] MEDS: lactobacillus rhamnosus 10,000 MMU CELLS/CAPSULE PO SCH (07:30)
[2017-08-31] MEDS: docusate sodium 100mg/10ml UD cup PO SCH ×2 (08:00→20:00)
[2017-08-31] MEDS: K and/or MAG REPLACEMENT MC SCH (08:00)
[2017-08-31] MEDS: LACTOSE-FREE FOOD 237ML (BOOST) PO SCH ×3 (08:00→18:52)
[2017-08-31] MEDS: multivitamins, therapeutics tablet PO SCH (08:00)
[2017-08-31] MEDS: enoxaparin 40mg/0.4ml syringe SUBCUT SCH (08:50)
[2017-08-31] MEDS: nystatin 500,000 unit/5ML UD oral suspension PO SCH ×3 (08:50→20:59)
[2017-08-31] MEDS: LORazepam 2 mg/ml vial IV PRN (08:51)
[2017-08-31] MEDS: methylPREDNISolone sod succ/PF 40mg inj. IV SCH ×2 (08:51→20:07)
[2017-08-31] MEDS: pantoprazole 40mg Tablet.DR PO SCH (08:51)
[2017-08-31] MEDS: levoTHYROXINE 25mcg tablet PO SCH (08:51)
[2017-08-31] MEDS: mineral oil/petrolatum, white cream 113gm jar TP SCH ×2 (09:00→20:07)
[2017-08-31 11:00] VITALS: BP 114/82
[2017-08-31 15:00] VITALS: BP 101/67
[2017-08-31] MEDS ORDERED: morphine ORAL 5MG/0.25 ML (Conc. morphine) oral syringe PO PRN (15:45)
[2017-08-31] MEDS: morphine 10mg/0.5ml (conc. morphine) oral syringe PO PRN (17:24)
[2017-08-31 18:00] VITALS: BP 112/84
[2017-08-31 22:00] VITALS: BP 117/75
[2017-09-01 02:00] VITALS: BP 120/79
[2017-09-01] MEDS: guaiFENesin 200 MG/10 ML oral syrup UD cup PO SCH ×4 (02:00→20:27)
[2017-09-01] MEDS: ipratropium/albuterol 3ml nebule NEB SCH ×6 (03:18→22:44)
[2017-09-01 05:43] LABS: BASOPHILS # (AUTO) 0.1 X10'3 (0-0.2); BASOPHILS % (AUTO) 0.5 % (0-1); EOSINOPHILS # (AUTO) 0.2 X10'3 (0-0.9); EOSINOPHILS % (AUTO) 1.5 % (0-6); HEMATOCRIT 39.4 % (35.0-45.0); HEMOGLOBIN 12.9 g/dl (12.0-16.0); LYMPHOCYTES # (AUTO) 0.3 X10'3 (1.1-4.8); LYMPHOCYTES % (AUTO) 2.1 % (21-51); MEAN CORPUSCULAR HEMOGLOBIN 31.4 PG (27.0-31.0); MEAN CORPUSCULAR HGB CONC 32.8 % (33.0-36.5); MEAN CORPUSCULAR VOLUME 95.6 FL (78-98); MEAN PLATELET VOLUME 7.9 FL (7.4-10.4); MONOCYTES # (AUTO) 0.3 X10'3 (0-0.9); MONOCYTES % (AUTO) 2.4 % (2-12); NEUTROPHILS # (AUTO) 12.7 X10'3 (1.8-7.7); NEUTROPHILS % (AUTO) 93.5 % (42-75); PLATELET COUNT 269 X10'3 (140-440); RED BLOOD COUNT 4.12 X10'6 (4.20-5.60); RED CELL DISTRIBUTION WIDTH 13.2 % (11.5-14.5); WHITE BLOOD COUNT 13.6 X10'3 (4.5-11.0)
[2017-09-01 06:00] VITALS: BP 104/76
[2017-09-01 06:10] LABS: ALANINE AMINOTRANSFERASE 24 U/L (12-78); ALBUMIN 2.5 G/DL (3.4-5.0); ALBUMIN/GLOBULIN RATIO 0.8 (1.1-1.5); ALKALINE PHOSPHATASE 52 IU/L (46-116); ASPARTATE AMINO TRANSFERASE 13 U/L (10-37); BILIRUBIN,TOTAL 0.8 MG/DL (0.1-1.0); BLOOD UREA NITROGEN 16 MG/DL (7-18); BUN/CREATININE RATIO 30.8 (6.6-38.0); CALCIUM 8.9 MG/DL (8.5-10.1); CHLORIDE 102 MMOL/L (99-107); CREATININE 0.52 MG/DL (0.40-0.90); GLUCOSE 138 MG/DL (70-104); POTASSIUM 4.9 MMOL/L (3.5-5.1); SODIUM 143 MMOL/L (135-145); TOTAL PROTEIN 5.5 G/DL (6.4-8.2); eGFR > 90 ML/MIN
[2017-09-01 06:21] LABS: ANION GAP 2 (8-16); TOTAL CARBON DIOXIDE 39.2 MMOL/L (24-32)
[2017-09-01] MEDS: multivitamins, therapeutics tablet PO SCH (06:59)
[2017-09-01] MEDS: K and/or MAG REPLACEMENT MC SCH (06:59)
[2017-09-01] MEDS: morphine 10mg/0.5ml (conc. morphine) oral syringe PO PRN ×3 (07:16→17:30)
[2017-09-01] MEDS: pantoprazole 40mg Tablet.DR PO SCH (07:30)
[2017-09-01] MEDS: LACTOBACILLUS RHAMNOSUS GG 15 billion unit sprinkle caps PO SCH (07:30)
[2017-09-01] MEDS: docusate sodium 100mg/10ml UD cup PO SCH ×2 (08:00→20:00)
[2017-09-01] MEDS: LACTOSE-FREE FOOD 237ML (BOOST) PO SCH ×3 (08:00→18:00)
[2017-09-01] MEDS: levoTHYROXINE 25mcg tablet PO SCH (08:00)
[2017-09-01] MEDS: LORazepam 2 mg/ml vial IV PRN ×2 (09:12→20:28)
[2017-09-01] MEDS: nystatin 500,000 unit/5ML UD oral suspension PO SCH ×3 (09:12→20:28)
[2017-09-01] MEDS: mineral oil/petrolatum, white cream 113gm jar TP SCH ×2 (09:13→20:29)
[2017-09-01] MEDS: enoxaparin 40mg/0.4ml syringe SUBCUT SCH (09:13)
[2017-09-01 11:00] VITALS: BP 128/81
[2017-09-01 15:00] VITALS: BP 101/75
[2017-09-01 18:00] VITALS: BP 104/74
[2017-09-01] MEDS: ipratropium 0.06% nasal spray 15ml NS SCH (20:26)
[2017-09-01 22:00] VITALS: BP 109/72
[2017-09-02 02:00] VITALS: BP 95/62
[2017-09-02] MEDS: guaiFENesin 200 MG/10 ML oral syrup UD cup PO SCH ×4 (02:00→20:00)
[2017-09-02] MEDS: ipratropium/albuterol 3ml nebule NEB SCH ×6 (03:01→23:07)
[2017-09-02 06:00] VITALS: BP 116/82
[2017-09-02] MEDS: LACTOBACILLUS RHAMNOSUS GG 15 billion unit sprinkle caps PO SCH (07:30)
[2017-09-02] MEDS: pantoprazole 40mg Tablet.DR PO SCH (07:30)
[2017-09-02] MEDS: docusate sodium 100mg/10ml UD cup PO SCH ×2 (07:44→20:00)
[2017-09-02] MEDS: levoTHYROXINE 25mcg tablet PO SCH (07:45)
[2017-09-02] MEDS: multivitamins, therapeutics tablet PO SCH (07:45)
[2017-09-02] MEDS: mineral oil/petrolatum, white cream 113gm jar TP SCH ×2 (07:46→20:26)
[2017-09-02] MEDS: K and/or MAG REPLACEMENT MC SCH (08:00)
[2017-09-02] MEDS: LACTOSE-FREE FOOD 237ML (BOOST) PO SCH ×3 (08:01→18:00)
[2017-09-02] MEDS: ipratropium 0.06% nasal spray 15ml NS SCH ×2 (08:01→20:22)
[2017-09-02] MEDS: nystatin 500,000 unit/5ML UD oral suspension PO SCH ×3 (08:01→20:22)
[2017-09-02] MEDS: enoxaparin 40mg/0.4ml syringe SUBCUT SCH (08:02)
[2017-09-02] MEDS: prednisone 10mg tablet PO SCH (08:04)
[2017-09-02] MEDS: LORazepam 2 mg/ml vial IV PRN ×2 (08:05→20:34)
[2017-09-02 11:00] VITALS: BP 129/79
[2017-09-02 15:00] VITALS: BP 107/72
[2017-09-02] MEDS: morphine 10mg/0.5ml (conc. morphine) oral syringe PO PRN (17:17)
[2017-09-02 19:00] VITALS: BP 104/74
[2017-09-02 23:00] VITALS: BP 116/80
[2017-09-03] MEDS: morphine 10mg/0.5ml (conc. morphine) oral syringe PO PRN ×4 (00:29→20:15)
[2017-09-03] MEDS: guaiFENesin 200 MG/10 ML oral syrup UD cup PO SCH ×5 (00:41→22:35)
[2017-09-03 03:00] VITALS: BP 111/83
[2017-09-03] MEDS: ipratropium/albuterol 3ml nebule NEB SCH ×6 (03:07→22:56)
[2017-09-03 06:00] VITALS: BP 148/89
[2017-09-03] MEDS: LORazepam 2 mg/ml vial IV PRN (07:08)
[2017-09-03] MEDS: LACTOBACILLUS RHAMNOSUS GG 15 billion unit sprinkle caps PO SCH (07:10)
[2017-09-03] MEDS: pantoprazole 40mg Tablet.DR PO SCH (07:10)
[2017-09-03] MEDS: docusate sodium 100mg/10ml UD cup PO SCH ×2 (07:11→20:00)
[2017-09-03] MEDS: levoTHYROXINE 25mcg tablet PO SCH (07:12)
[2017-09-03] MEDS: multivitamins, therapeutics tablet PO SCH (07:12)
[2017-09-03] MEDS: K and/or MAG REPLACEMENT MC SCH (08:00)
[2017-09-03] MEDS: LACTOSE-FREE FOOD 237ML (BOOST) PO SCH ×3 (08:15→18:00)
[2017-09-03] MEDS: mineral oil/petrolatum, white cream 113gm jar TP SCH ×2 (08:18→20:15)
[2017-09-03] MEDS: nystatin 500,000 unit/5ML UD oral suspension PO SCH ×3 (08:18→20:15)
[2017-09-03] MEDS: prednisone 10mg tablet PO SCH (08:18)
[2017-09-03] MEDS: enoxaparin 40mg/0.4ml syringe SUBCUT SCH (08:18)
[2017-09-03] MEDS: ipratropium 0.06% nasal spray 15ml NS SCH ×2 (08:20→20:15)
[2017-09-03 11:00] VITALS: BP 104/72
[2017-09-03 15:00] VITALS: BP 102/66
[2017-09-03] MEDS ORDERED: LORazepam 2 mg/ml vial IV PRN (15:40)
[2017-09-03] MEDS ORDERED: Protein Smoothie (high protein) 240ml (8oz) cup PO SCH (17:00)
[2017-09-03 19:00] VITALS: BP 118/81
[2017-09-03 23:00] VITALS: BP 119/87
[2017-09-04] MEDS: ipratropium/albuterol 3ml nebule NEB SCH ×3 (02:53→11:27)
[2017-09-04 03:00] VITALS: BP 125/88
[2017-09-04 06:00] VITALS: BP 107/83
[2017-09-04] MEDS: LACTOBACILLUS RHAMNOSUS GG 15 billion unit sprinkle caps PO SCH (07:30)
[2017-09-04] MEDS: guaiFENesin 200 MG/10 ML oral syrup UD cup PO SCH (07:41)
[2017-09-04] MEDS: levoTHYROXINE 25mcg tablet PO SCH (07:42)
[2017-09-04] MEDS: multivitamins, therapeutics tablet PO SCH (07:42)
[2017-09-04] MEDS: pantoprazole 40mg Tablet.DR PO SCH (07:55)
[2017-09-04] MEDS: LACTOSE-FREE FOOD 237ML (BOOST) PO SCH ×2 (07:56→13:15)
[2017-09-04] MEDS: ipratropium 0.06% nasal spray 15ml NS SCH (07:56)
[2017-09-04] MEDS: docusate sodium 100mg/10ml UD cup PO SCH (07:57)
[2017-09-04] MEDS: nystatin 500,000 unit/5ML UD oral suspension PO SCH ×2 (07:57→13:15)
[2017-09-04] MEDS: mineral oil/petrolatum, white cream 113gm jar TP SCH (07:58)
[2017-09-04] MEDS: prednisone 10mg tablet PO SCH (07:58)
[2017-09-04] MEDS: enoxaparin 40mg/0.4ml syringe SUBCUT SCH (07:58)
[2017-09-04 08:00] VITALS: BP 107/83
[2017-09-04] MEDS: K and/or MAG REPLACEMENT MC SCH (08:00)
[2017-09-04] MEDS: morphine 10mg/0.5ml (conc. morphine) oral syringe PO PRN (09:58)
[2017-09-04 11:00] VITALS: BP 112/75
[2017-09-04] MEDS ORDERED: LORazepam 2 mg/ml vial IV ONE (11:25)
[2017-09-04] MEDS ORDERED: MORP100S12 PO (12:33)
[2017-09-04] MEDS ORDERED: NYST1000 PO (12:33)
[2017-09-04] MEDS ORDERED: LORA2VIA4 PO (12:33)
[2017-09-04] MEDS ORDERED: morphine 10mg/0.5ml (conc. morphine) oral syringe PO SCH (13:30)
== END 2017-09-04 15:50 | disposition hospice, inpatient (51) | DRG 871 ==
LOC: ER 08:44 → ED HOLD 10:07 → PCU 3S 12:16
PROVIDERS: ADMIT Internal Medicine; ATTEND Internal Medicine
PROC: 5A09457 Assistance with Respiratory Ventilation, 24-96 Consecutive Hours, Continuous Positive Airway Pressure (ICD-10-PCS; principal; 2017-08-23)
PROC: 5A09357 Assistance with Respiratory Ventilation, Less than 24 Consecutive Hours, Continuous Positive Airway Pressure (ICD-10-PCS; 2017-08-26)
DX: A41.9 Sepsis, unspecified organism (principal); J96.20 Acute and chronic respiratory failure, unspecified whether with hypoxia or hypercapnia; E87.4 Mixed disorder of acid-base balance; R64 Cachexia; E44.0 Moderate protein-calorie malnutrition; M48.54XA Collapsed vertebra, not elsewhere classified, thoracic region, initial encounter for fracture; J44.1 Chronic obstructive pulmonary disease with (acute) exacerbation; Z99.81 Dependence on supplemental oxygen; B37.0 Candidal stomatitis; Z68.1 Body mass index [BMI] 19.9 or less, adult; R91.1 Solitary pulmonary nodule; E03.9 Hypothyroidism, unspecified; E78.00 Pure hypercholesterolemia, unspecified; E78.5 Hyperlipidemia, unspecified; R58 Hemorrhage, not elsewhere classified; F41.9 Anxiety disorder, unspecified; J20.9 Acute bronchitis, unspecified; R62.7 Adult failure to thrive; Z66 Do not resuscitate; Z51.5 Encounter for palliative care; Z90.710 Acquired absence of both cervix and uterus; Z88.1 Allergy status to other antibiotic agents; Z88.8 Allergy status to other drugs, medicaments and biological substances; Z79.52 Long term (current) use of systemic steroids; Z79.899 Other long term (current) drug therapy; Z87.891 Personal history of nicotine dependence
CPT/HCPCS: 36415; 36600; 71010; 71250; 73630; 80053; 82803; 82948; 83605; 83735; 83880; 84484; 85018; 85025; 87040; 87070; 93005; 94640; 94660; 94760; 96374; 97110; 97116; 97161; 97530; 99285; A6212; A6213; A6258; C9113; J1100; J1650; J1956; J2060; J2920; J2930; J3490; J7030; J7512; Q0167